=== PATIENT | male | born 1955 | race Hispanic/Latino ===

== ENCOUNTER → 2018-11-28 | Outpatient (CLI) | payer OTHER | END | disposition home or self-care (01) | LOC: OIH 13:17 | PROVIDERS: ATTEND Internal Medicine Cardiovascular Disease | DX: Z13.6 Encounter for screening for cardiovascular disorders (principal) | CPT/HCPCS: 75571 ==

== ENCOUNTER 2020-01-19 11:40 | Emergency (ER) | payer OTHER ==
[2020-01-19 12:27] LABS: BASOPHILS % (AUTO) 0.6 % (0.0-5.0); EOSINOPHILS % (AUTO) 2.5 % (0.0-8.0); HEMATOCRIT 40.2 % (42-54); LYMPHOCYTES % (AUTO) 26.9 % (21.0-51.0); MEAN CORPUSCULAR HEMOGLOBIN 30.4 pg (27.0-33.0); MEAN CORPUSCULAR HGB CONC 34.1 g/dL (32.0-36.0); MEAN CORPUSCULAR VOLUME 89.1 fL (79-99); MONOCYTES % (AUTO) 15.2 % (3.0-13.0); NEUTROPHILS % (AUTO) 54.4 % (40.0-77.0); PLATELET COUNT (AUTO) 157 K/uL (130-400); RED BLOOD CELL COUNT(AUTO) 4.51 MIL/uL (4.50-6.20); RED CELL DISTRIBUTION WIDTH 14.1 % (11.0-15.5); WHITE BLOOD COUNT (AUTO) 4.9 K/uL (4.8-10.8)
[2020-01-19 12:40] LABS: CREATININE 1.1 mg/dL (0.5-1.5); POTASSIUM 4.3 mmol/L (3.5-5.1)
[2020-01-19 12:44] LABS: ALBUMIN 3.5 g/dL (3.5-5.0); BILIRUBIN,TOTAL 0.4 mg/dL (0.2-1.0); TOTAL PROTEIN, SERUM 6.9 g/dL (6.0-8.3)
[2020-01-19 12:46] LABS: CHOLESTEROL 172 mg/dL (<200); HDL CHOLESTEROL 31 mg/dL (29-71); LDL DIRECT 109 mg/dL (0-99); TRIGLYCERIDES 304 mg/dL (30-200)
[2020-01-19 13:04] LABS: APPEARANCE,URINE Clear (CLEAR); BILIRUBIN,URINE Negative (NEGATIVE); COLOR,URINE Yellow (YELLOW); GLUCOSE, URINE (UA) Negative (NEGATIVE); KETONES,URINE Negative (NEGATIVE); LEUKOCYTE ESTERASE ,URINE Trace (NEGATIVE); NITRATE,URINE Negative (NEGATIVE); OCCULT BLOOD,URINE Negative (NEGATIVE); PROTEIN,URINE Negative (NEGATIVE); UROBILINOGEN,URINE 0.2 mg/dL (0.2-1.0)
[2020-01-19 13:34] LABS: RBC,URINE None Seen /HPF (0-1); WBC,URINE None Seen /HPF (0-1)
[2020-01-19 13:35] LABS: BACTERIA,URINE None Seen /HPF (None Seen); SQUAMOUS EPITHELIAL CELL,UR 0-2 /HPF (0-2)
[2020-01-19] MEDS ORDERED: IOHEXOL-350 75 ML VIAL IV ONE (13:38)
== END 2020-01-19 15:07 | disposition home or self-care (01) ==
LOC: EDH 11:40
DX: R10.84 Generalized abdominal pain (principal); R74.8 Abnormal levels of other serum enzymes; Z88.0 Allergy status to penicillin; Z88.1 Allergy status to other antibiotic agents
CPT/HCPCS: 36415; 74177; 80053; 80061; 81001; 82270; 83690; 85025; 87046; 87324; 99285; Q9967

== ENCOUNTER 2022-01-09 07:24 | Observation (INO) | payer MEDICARE ==
[2022-01-03 11:40] LABS: BASOPHILS % (AUTO) 0.4 % (0.0-5.0); EOSINOPHILS % (AUTO) 1.4 % (0.0-8.0); HEMATOCRIT 42.4 % (42-54); LYMPHOCYTES % (AUTO) 33.8 % (21.0-51.0); MEAN CORPUSCULAR HGB CONC 33.5 g/dL (32.0-36.0); MEAN CORPUSCULAR VOLUME 89.6 fL (79-99); MONOCYTES % (AUTO) 10.4 % (3.0-13.0); NEUTROPHILS % (AUTO) 53.6 % (40.0-77.0); PLATELET COUNT (AUTO) 191 K/uL (130-400); RED BLOOD CELL COUNT(AUTO) 4.73 MIL/uL (4.50-6.20); RED CELL DISTRIBUTION WIDTH 13.9 % (11.0-15.5); WHITE BLOOD COUNT (AUTO) 5.2 K/uL (4.8-10.8)
[2022-01-03 11:59] LABS: POTASSIUM 4.8 mmol/L (3.5-5.1)
[2022-01-03 13:10] LABS: INR 0.96 (0.85-1.15); PROTHROMBIN TIME 10.5 SEC (9.6-11.6)
[2022-01-03 13:11] LABS: PARTIAL THROMBOPLASTIN TIME 26.5 SEC (26.3-35.5)
[2022-01-08 13:02] VITALS: BP 139/80
[2022-01-09] VITALS (25 sets, daily range): BP systolic 98–142; BP diastolic 56–83
[~2022-01-09] VITALS: Ht 170.2 cm; Wt 94.4 kg
[2022-01-09] MEDS: TRANEXAMIC ACID 1000MG/10ML IV SCH ×2 (06:00→11:46)
[2022-01-09] MEDS: CLINDAMYCIN IVPB 600MG/50ML 50 ML IV SCH ×3 (06:00→20:27)
[~2022-01-09 07:24] MED LIST: DULO60CA64 PO; ROPIVICAINE 250MG+KETOROLAC 15MG+EPINEPHRINE 0.3+CLONIDINE 80 IV PRN; TAMS-1 PO
[2022-01-09] MEDS: LACTATED RINGERS 1000ML 1,000 ML IV SCH ×3 (08:37→15:29)
[2022-01-09] MEDS ORDERED: MIDAZOLAM HCL 1 MG/ML 2ML VIAL ONE ×2 (10:47→11:10)
[2022-01-09] MEDS ORDERED: SUCCINYLCHOLINE CHLORIDE 20 MG/ML 10 ML VIAL ONE (10:58)
[2022-01-09] MEDS ORDERED: PROPOFOL 10 MG/ML 20ML VIAL IV ONE (10:58)
[2022-01-09] MEDS ORDERED: ROCURONIUM 10MG/1ML SYR 10 MG/ML ML ONE ×3 (10:59→13:07)
[2022-01-09] MEDS ORDERED: FENTANYL CITRATE PF 50 MCG/1 ML 2ML VIAL ONE (10:59)
[2022-01-09] MEDS ORDERED: ROPIVACAINE 0.5% 5MG/ML 30ML IJ ONE (11:01)
[2022-01-09] MEDS ORDERED: DEXAMETHASONE SOD PHOSPHATE 10MG/ML 1ML VIAL ONE (11:20)
[2022-01-09] MEDS ORDERED: EPHEDRINE SULFATE 50 MG/ML AMPULE ONE (11:29)
[2022-01-09] MEDS ORDERED: TRANEXAMIC ACID 1000MG/10ML ONE ×2 (11:44→12:54)
[2022-01-09] MEDS ORDERED: GLYCOPYRROLATE 1 MG/5 ML SYRINGE ONE (11:58)
[2022-01-09] MEDS ORDERED: FERROUS FUMARATE 324 MG TABLET PO PRN (15:30)
[2022-01-09] MEDS ORDERED: HYDROCODONE/ACETAMINOPHEN 5/325 MG TAB PO PRN (15:30)
[2022-01-09] MEDS ORDERED: MORPHINE 4 MG SYG IVP PRN (15:30)
[2022-01-09] MEDS: ACETAMINOPHEN 500 MG TABLET PO SCH ×2 (15:30→23:41)
[2022-01-09] MEDS: 0.9%NACL 1000ML 1,000 ML IV SCH ×2 (15:30→20:27)
[2022-01-09] MEDS ORDERED: ONDANSETRON 4MG INJ IVP PRN (15:30)
[2022-01-09] MEDS ORDERED: MEPERIDINE-PF 25 MG/ML SYG ONE ×2 (15:44→15:57)
[2022-01-09] MEDS: TRAMADOL HCL 50 MG TABLET PO SCH (18:53)
[2022-01-09] MEDS: FAMOTIDINE 20MG TAB PO SCH (20:26)
[2022-01-09] MEDS: ASPIRIN 81 MG EC TAB PO SCH (20:27)
[2022-01-09] MEDS: HYDROCODONE/ACETAMINOPHEN 10/325 MG TAB PO PRN (20:56)
[2022-01-10] MEDS: TRAMADOL HCL 50 MG TABLET PO SCH ×5 (00:01→23:23)
[2022-01-10] MEDS ORDERED: CLINDAMYCIN IVPB 600MG/50ML 50 ML IV ONE (03:24)
[2022-01-10] MEDS: CLINDAMYCIN IVPB 600MG/50ML 50 ML IV SCH (03:31)
[2022-01-10 05:15] VITALS: BP 98/56
[2022-01-10 05:21] LABS: HEMATOCRIT 32.4 % (42-54); MEAN CORPUSCULAR HEMOGLOBIN 30.1 pg (27.0-33.0); MEAN CORPUSCULAR VOLUME 88.5 fL (79-99); RED BLOOD CELL COUNT(AUTO) 3.66 MIL/uL (4.50-6.20); WHITE BLOOD COUNT (AUTO) 13.9 K/uL (4.8-10.8)
[2022-01-10 05:30] LABS: CREATININE 1.2 mg/dL (0.5-1.5); POTASSIUM 4.2 mmol/L (3.5-5.1)
[2022-01-10] MEDS: ACETAMINOPHEN 500 MG TABLET PO SCH ×3 (06:45→23:24)
[2022-01-10 08:00] VITALS: BP 107/55
[2022-01-10] MEDS: POLYETHYLENE GLYCOL 3350 17 GM POWD.PACK PO SCH (08:29)
[2022-01-10] MEDS: DULOXETINE HCL 30 MG CAP PO SCH (08:30)
[2022-01-10] MEDS: FAMOTIDINE 20MG TAB PO SCH ×2 (08:30→21:47)
[2022-01-10] MEDS: TAMSULOSIN HCL 0.4 MG CAP.ER.24H PO SCH (08:30)
[2022-01-10] MEDS: ASPIRIN 81 MG EC TAB PO SCH ×2 (08:30→21:47)
[2022-01-10] MEDS: KETOROLAC 15MG/ML VIAL (15MG/ML) IV PRN ×2 (08:40→14:53)
[2022-01-10] MEDS: 0.9%NACL 1000ML 1,000 ML IV SCH (11:30)
[2022-01-10 11:44] VITALS: BP 99/59
[2022-01-10 16:00] VITALS: BP 102/57
[2022-01-10 19:36] VITALS: BP 105/60
[2022-01-10] MEDS: HYDROCODONE/ACETAMINOPHEN 10/325 MG TAB PO PRN (21:48)
[2022-01-11] VITALS (7 sets, daily range): BP systolic 100–128; BP diastolic 54–74
[2022-01-11] MEDS: ACETAMINOPHEN 500 MG TABLET PO SCH ×3 (06:30→23:48)
[2022-01-11] MEDS: TRAMADOL HCL 50 MG TABLET PO SCH ×4 (06:30→23:48)
[2022-01-11] MEDS: HYDROCODONE/ACETAMINOPHEN 10/325 MG TAB PO PRN ×2 (07:46→19:56)
[2022-01-11] MEDS: FAMOTIDINE 20MG TAB PO SCH ×2 (07:46→19:56)
[2022-01-11] MEDS: TAMSULOSIN HCL 0.4 MG CAP.ER.24H PO SCH (07:46)
[2022-01-11] MEDS: POLYETHYLENE GLYCOL 3350 17 GM POWD.PACK PO SCH (07:46)
[2022-01-11] MEDS: ASPIRIN 81 MG EC TAB PO SCH ×2 (07:46→19:56)
[2022-01-11] MEDS: DULOXETINE HCL 30 MG CAP PO SCH (07:46)
[2022-01-11] MEDS: KETOROLAC 15MG/ML VIAL (15MG/ML) IV PRN (13:55)
[2022-01-12 04:35] VITALS: BP 115/69
[2022-01-12] MEDS: TRAMADOL HCL 50 MG TABLET PO SCH (04:57)
[2022-01-12] MEDS: ACETAMINOPHEN 500 MG TABLET PO SCH (04:58)
[2022-01-12] MEDS: TAMSULOSIN HCL 0.4 MG CAP.ER.24H PO SCH (07:07)
[2022-01-12] MEDS: HYDROCODONE/ACETAMINOPHEN 10/325 MG TAB PO PRN (07:08)
[2022-01-12] MEDS: ASPIRIN 81 MG EC TAB PO SCH (07:08)
[2022-01-12] MEDS: POLYETHYLENE GLYCOL 3350 17 GM POWD.PACK PO SCH (07:08)
[2022-01-12] MEDS: DULOXETINE HCL 30 MG CAP PO SCH (07:08)
[2022-01-12] MEDS: FAMOTIDINE 20MG TAB PO SCH (07:08)
[2022-01-12 08:40] VITALS: BP 119/69
[2022-01-12] MEDS ORDERED: BISACODYL 10 MG SUPP.RECT RC PRN (15:30)
== END 2022-01-12 10:20 | disposition home or self-care (01) ==
LOC: DAH 07:24 → DAHIP 07:25 → DAH 07:25 → 4BH 16:27
PROVIDERS: ADMIT Orthopaedic Surgery; ATTEND Orthopaedic Surgery
DX: M17.12 Unilateral primary osteoarthritis, left knee (principal); Z20.822 Contact with and (suspected) exposure to COVID-19; M24.562 Contracture, left knee; M25.769 Osteophyte, unspecified knee; M24.662 Ankylosis, left knee; Z96.652 Presence of left artificial knee joint; Z79.899 Other long term (current) drug therapy; Z68.31 Body mass index [BMI] 31.0-31.9, adult
CPT/HCPCS: 80048 ×2; 85025; 85610; 85730; 87426; 36415 ×2; 93005; 87641; 27447; 96365; 76942; 64447; 73562; 96376 ×2; 96366; 96375; 85027; 97161; 97039 ×5; 97116 ×5; 97530 ×4; A6260; G0378 ×63; A4663; J7120 ×2; A4344; A4649 ×3; C1776; A4600; J3010; J3490 ×7; J1100; J0330; J7030; J0171; J2250 ×2; J2704; J2175 ×2; J2795 ×2; J1885 ×4; J0735; A6223; A6255; A5120; A4215; A4223; A4222; A4221; J2270